=== PATIENT | female | born 1965 | race Caucasian/White ===

== ENCOUNTER 2019-04-07 09:51 | Emergency (ER) | payer OTHER ==
[~2019-04-07] VITALS: Ht 172.7 cm; Wt 86.7 kg
[2019-04-07 09:59] VITALS: Ht 172.7 cm; Wt 86.7 kg
[2019-04-07 12:24] VITALS: BP 106/64
== END 2019-04-07 12:24 | disposition home or self-care (01) ==
LOC: ED 09:51
DX: R68.84 Jaw pain (principal)
CPT/HCPCS: J0696; J1100; J1885; J3490; J7030; J7060